=== PATIENT | male | born 1985 | race Caucasian/White ===

== ENCOUNTER 2025-02-06 12:02 | Emergency (ER) | payer OTHER, BC ==
[~2025-02-06] VITALS: Ht 188 cm; Wt 115.7 kg
[2025-02-06 12:14] VITALS: TEMP 98.3
--- NOTE | 2025-02-06 12:28 | ELECTROCARDIOGRAPH REPORT ---
[facility] Test Date: 2025-02-06 Test Time: 12:26:11 Pat Name: RUSTY GUTIERREZ Department: [facility] Patient ID: [facility]-[id number] Room: Gender: M Transportation Attendant: : 1985 Requested By: ARTEMIO TONG Order Number: [id number] Reading MD: Measurements Intervals [place] Rate: 92 P: 0 HI: 0 QRS: 24 QRSD: 95 T: -1 QT: 344 QTc: 426 Interpretive Statements Atrial fibrillation Borderline T abnormalities, inferior leads Borderline ST elevation, lateral leads Please click the below link to view image of tracing.
--- NOTE | 2025-02-06 12:51 | RADIOLOGY REPORT ---
EXAM: XR Chest, 1 View CLINICAL INDICATION: CP TECHNIQUE: Frontal view of the chest. COMPARISON: None FINDINGS: LUNGS AND PLEURAL SPACES: Unremarkable. No consolidation. No pneumothorax. HEART: Unremarkable. No cardiomegaly. MEDIASTINUM: Unremarkable. Normal mediastinal contour. BONES/JOINTS: Unremarkable. No acute fracture. OTHER FINDINGS: . IMPRESSION: No acute cardiopulmonary process.
[2025-02-06 13:15] LABS: BASOPHILS # (AUTO) 0.1 X10'3 (0-0.2); EOSINOPHILS # (AUTO) 0.5 X10'3 (0-0.9); EOSINOPHILS % (AUTO) 6.9 % (0-6); HEMOGLOBIN 15.5 g/dl (14.0-17.9); LYMPHOCYTES # (AUTO) 1.9 X10'3 (1.1-4.8); LYMPHOCYTES % (AUTO) 27.1 % (21-51); MEAN CORPUSCULAR HEMOGLOBIN 33.1 PG (27.0-31.0); MEAN CORPUSCULAR HGB CONC 34.4 g/dL (33.0-36.5); MEAN CORPUSCULAR VOLUME 96.4 FL (78-98); MEAN PLATELET VOLUME 8.2 FL (7.4-10.4); MONOCYTES # (AUTO) 0.7 X10'3 (0-0.9); MONOCYTES % (AUTO) 10.6 % (2-12); NEUTROPHILS # (AUTO) 3.7 X10'3 (1.8-7.7); NEUTROPHILS % (AUTO) 54.4 % (42-75); PLATELET COUNT 311 X10'3 (140-440); RED BLOOD COUNT 4.66 X10'6 (4.70-6.10); RED CELL DISTRIBUTION WIDTH 11.9 % (11.5-14.5); WHITE BLOOD COUNT 6.9 X10'3 (4.5-11.0)
--- NOTE | 2025-02-06 13:33 | Physician Documentation ---
History of Present Illness ~ Chief Complaint: Palpitations Stated Complaint: IRREGULAR HEART BEAT Time Seen by MD: 13:31 HPI Patient is seen today with complaints of palpitations that started last night. Patient denies any chest pain or shortness of breath or abdominal pain or nausea, vomiting, diarrhea. Patient denies any significant past medical history or history of heart disease. Patient denies any history of AFib. Patient states he has felt palpitations off and on over the last few years. Patient came in today due to feeling of palpitations last night and this morning. Review of Systems Constitutional: Denies: chills, fever, weakness Eyes: Denies: pain, blurred vision ENT: Denies: ear pain, nose pain, throat pain, mouth pain Respiratory: Denies: cough, shortness of breath Cardiovascular: Denies: chest pain, palpitations Gastrointestinal: Denies: abdominal pain, nausea, vomiting Genitourinary: Denies: burning, dysuria Male Genitalia: Denies: penile discharge, testicular pain Neurological: Denies: headache, dizziness Musculoskeletal: Denies: pain, swelling Integumentary: Denies: rash, lesions Allergic/Immunologic: Denies: hives, itching Hematologic/Lymphatic: Denies: no symptoms reported Psychiatric: Denies: depression, anxiety Physical Exam Vital Signs: Temperature: 98.3, Source: Oral, Heart Rate: 86, Respiratory Rate: 18, BP: 148/84, Pulse Oximetry: 98, Weight: 115.700 Physical Exam General: Awake and Alert, no acute distress. HEENT: Conjunctiva pink, Sclera clear, Mucus Membranes moist. Neck: Supple without masses and tenderness. Resp: Unlabored. Lungs clear to auscultation bilaterally. Heart: Initially patient had an irregularly irregular rhythm with a regular rate and no murmur, on re-examination the patient did have a Regular Rate and rhythm, normal S1 and S2 without murmur, rub or gallop. Abdomen: Soft and non tender no organomegaly Extremities: No cyanosis,clubbing or edema. Skin: Warm and Dry. Progress Results/Orders Results/Orders Orders - TIANNA RUEDA PAC Stat Ekg (02/06/25 ) Electrocardiogram (02/06/25 16:51) Vital Signs 02/06/25 02/06/25 12:14 16:02 Temp 98.3 Pulse 86 Resp 18 B/P (MAP) 148/84 Pulse Ox 98 Laboratory Tests Test 02/06/25 12:59 02/06/25 14:23 02/06/25 15:24 White Blood Count 6.9 Red Blood Count 4.66 L Hemoglobin 15.5 Hematocrit 45.0 Mean Corpuscular Volume 96.4 Mean Corpuscular Hemoglobin 33.1 H Mean Corpuscular Hemoglobin Concent 34.4 Red Cell Distribution Width 11.9 Platelet Count 311 Mean Platelet Volume 8.2 Neutrophils (%) (Auto) 54.4 Lymphocytes (%) (Auto) 27.1 Monocytes (%) (Auto) 10.6 Eosinophils (%) (Auto) 6.9 H Basophils (%) (Auto) 1.0 Neutrophils # (Auto) 3.7 Lymphocytes # (Auto) 1.9 Monocytes # (Auto) 0.7 Eosinophils # (Auto) 0.5 Basophils # (Auto) 0.1 CBC Comment Sodium Level 144 Potassium Level 3.8 Chloride Level 109 H Carbon Dioxide Level 26.1 Anion Gap 9 Blood Urea Nitrogen 14 Creatinine 1.01 Estimated GFR/1.73 m2 83 BUN/Creatinine Ratio 13.9 Glucose Level 86 Calcium Level 8.7 Total Bilirubin 0.3 Aspartate Amino Transf (AST/SGOT) 35 Alanine Aminotransferase (ALT/SGPT) 63 Alkaline Phosphatase 73 Troponin I High Sensitivity 48 49 50 Pro-B-Type Natriuretic Peptide 270 H Total Protein 6.4 Albumin 3.6 Globulin 2.8 Albumin/Globulin Ratio 1.3 Chemistry Comments Troponin I High Sens Percent Delta 2 2 Troponin I Hi Sens Absolute Change 1 1 EKG/XRAY/CT/US/VASC/MRI EKG : Additional Comment EKG interpreted by myself today shows atrial fibrillation with rate at 92 beats per minute, no ST segment elevation or ischemic changes, no axis deviation. Repeat EKG interpreted by myself today shows regular rate at 76 beats per minute, normal sinus rhythm, no sign of ST segment elevation or ischemic changes, no axis deviation. Medical Decision Making Findings Patient is seen today with complaints of palpitations that started last night. Patient denies any chest pain or shortness of breath or abdominal pain or nausea, vomiting, diarrhea. Patient denies any significant past medical history or history of heart disease. Patient denies any history of AFib. Patient states he has felt palpitations off and on over the last few years. Patient came in today due to feeling of palpitations last night and this morning. During patient's stay in the ER, the patient's original EKG showed atrial fibrillation however a few hours later patient spontaneously converted to normal sinus rhythm. Patient will follow up with Cardiology as soon as possible. Patient will take aspirin 81 mg by mouth once a day until he sees the habilitation specialist. Patient will return to ED with any worsening, concerning or changing symptoms. Shared decision-making utilized today. Departure Disposition: HOME / SELF CARE / HOMELESS Impression: Primary Impression: Palpitations Additional Impressions: Irregular heartbeat Atrial fibrillation Qualified Codes: I48.91 - Unspecified atrial fibrillation Condition: Improved Discharge Instructions: Palpitations, [id number], Atrial Fibrillation, Easy -to-Read Additional Instructions: During patient's stay in the ER, the patient's original EKG showed atrial fibrillation however a few hours later patient spontaneously converted to normal sinus rhythm. Patient will follow up with Cardiology as soon as possible. Patient will take aspirin 81 mg by mouth once a day until he sees the habilitation specialist. Patient will return to ED with any worsening, concerning or changing symptoms. Shared decision-making utilized today. Referrals: NO PRIMARY CARE PROVIDER (PCP) Prescriptions Aspirin (Aspir 81) 81 Mg Tablet. 1 TAB PO DAILY for 30 Days, #30 TAB Prov: TIANNA RUEDA 02/06/25 Signature Scribe Signature: No scribe Attestation: No scribe TIANNA RUEDA February 06, 2025 13:33
[2025-02-06 13:58] LABS: ALANINE AMINOTRANSFERASE 63 U/L (12-78); ALBUMIN 3.6 G/DL (3.4-5.0); ALBUMIN/GLOBULIN RATIO 1.3 (1.1-1.5); ALKALINE PHOSPHATASE 73 IU/L (46-116); ANION GAP 9 (8-16); ASPARTATE AMINO TRANSFERASE 35 U/L (10-37); BILIRUBIN,TOTAL 0.3 MG/DL (0.1-1.0); BLOOD UREA NITROGEN 14 MG/DL (7-18); BUN/CREATININE RATIO 13.9 (10.0-20.0); CALCIUM 8.7 MG/DL (8.5-10.1); CHLORIDE 109 MMOL/L (99-107); CREATININE 1.01 MG/DL (0.60-1.10); GLUCOSE 86 MG/DL (70-104); POTASSIUM 3.8 MMOL/L (3.5-5.1); SODIUM 144 MMOL/L (135-145); TOTAL CARBON DIOXIDE 26.1 MMOL/L (24-32); TOTAL PROTEIN 6.4 G/DL (6.4-8.2); eCRCL 116 ML/MIN; eGFR 83 ML/MIN
[2025-02-06 14:05] LABS: PRO BRAIN NATRIURETIC PEPTIDE 270 PG/ML (0-125)
--- NOTE | 2025-02-06 17:07 | ELECTROCARDIOGRAPH REPORT ---
[facility] Test Date: 2025-02-06 Test Time: 17:04:44 Pat Name: RUSTY GUTIERREZ Department: SHORT STAY 1ST FLOOR Patient ID: [facility]-[id number] Room: Gender: M [employer]ling [employer] Grader: DENISSE : 1985 Requested By: TIANNA RUEDA Order Number: [id number] Reading MD: Dr. Shabana Burger Measurements Intervals [place] Rate: 76 P: 44 [place]: 153 QRS: 20 QRSD: 102 T: -2 QT: 372 QTc: 419 Interpretive Statements Sinus rhythm Borderline T abnormalities, inferior leads Electronically Signed On 02-07-2025 13:04:[address] Shabana Burger Please click the below link to view image of tracing.
[2025-02-06] MEDS ORDERED: ASPI-611 PO (17:22)
[2025-02-06 17:42] VITALS: BP 151/98; PULSE 87; RESP 12; O2SAT 98
== END 2025-02-06 17:44 | disposition home or self-care (01) ==
LOC: ER 12:03
DX: R00.2 Palpitations (principal); I48.91 Unspecified atrial fibrillation; I49.9 Cardiac arrhythmia, unspecified
CPT/HCPCS: 36415; 71045; 80053; 83880; 84484; 85025; 93005; 99285